=== PATIENT | male | born 1980 | race Two or more races ===

== ENCOUNTER 2021-01-14 20:39 | Emergency (ER) | payer BC ==
[2021-01-14 21:46] VITALS: BP 122/83; PULSE 73; RESP 20; TEMP 97.7
[2021-01-14] MEDS ORDERED: ONDANSETRON 4 MG ODT STARTER PACK 2 TAB BTL PO STA (23:58)
--- NOTE | 2021-01-15 00:01 | ED ---
Nausea/Vomiting/Diarrhea HPI - General Chief complaint: Nausea/Vomiting/Diarrhea Stated complaint: Vomiting Time Seen by Provider: 01/14/21 23:19 Source: patient Mode of arrival: ambulatory Limitations: no limitations - History of Present Illness Initial comments: 40 year-old male patient presents to the emergency department for evaluation after having an episode of vomiting. States he was traveling here from [place], stopped for a fast food lunch in [place] and shortly after eating started to feel nauseated. States he tried to make himself vomit but was unable. States he did have a bowel movement at that time which seemed more loose than usual. [place], this time he did have an episode of vomiting. States he was breathing heavily and started to having numbness and cramping in his hands and feet. They called EMS, he was given zofran. He came in to be seen. States since waiting he has started to feel much better. Denies ever having abdominal pain with this. Denies fever or chills. States nausea is resolved. He states he is otherwise healthy. No chronic medical conditions. - Related Data Previous Rx's Medication Instructions Recorded Ondansetron [Zofran ODT] 4 mg PO Q8HR PRN #10 tab 01/15/21 Allergies Allergy/AdvReac Type Severity Reaction Status Date / Time No Known Allergies Allergy Verified 01/14/21 21:46 Review of Systems ROS Statement: Those systems with pertinent positive or pertinent negative responses have been documented in the HPI. ROS Other: All systems not noted in ROS Statement are negative. Past Medical History Past Medical History: No Reported History History of Any Multi-Drug Resistant Organisms: None Reported Past Surgical History: No Surgical Hx Reported Past Psychological History: No Psychological Hx Reported Smoking Status: Never smoker Past Alcohol Use History: Occasional Past Drug Use History: None Reported General Exam Limitations: no limitations General appearance: alert, in no apparent distress, other (This is a well- developed, well-nourished adult male in no acute distress.) Eye exam: Present: normal appearance, PERRL, EOMI. Absent: scleral icterus, conjunctival injection, periorbital swelling ENT exam: Present: normal exam, normal oropharynx, mucous membranes moist Respiratory exam: Present: normal lung sounds bilaterally. Absent: respiratory distress, wheezes, rales, rhonchi, stridor Cardiovascular Exam: Present: regular rate, normal rhythm, normal heart sounds. Absent: systolic murmur, diastolic murmur, rubs, gallop, clicks GI/Abdominal exam: Present: soft, normal bowel sounds. Absent: distended, tenderness, guarding, rebound, rigid Neurological exam: Present: alert, oriented X3, CN II-XII intact Psychiatric exam: Present: normal affect, normal mood Skin exam: Present: warm, dry, intact, normal color. Absent: rash Course Vital Signs 01/14/21 21:43 Temperature 97.7 F Pulse Rate 73 Respiratory 20 Rate Blood Pressure 122/83 O2 Sat by Pulse 100 Oximetry Medical Decision Making - Medical Decision Making 40 year-old male patient presents for evaluation after having an episode of vomiting, numbness and tingling to the hands and feet. Physical examination unremarkable. States he is feeling better and also does have resolved. Tolerate oral intake while here. We discussed possibility of food poisoning as a cause for his symptoms also discussed that hyperventilation with a cause for his and foot symptoms. I did offer to perform labs, administer IV fluids. He declined. Stated he felt comfortable being discharged since all symptoms resolved. Given a starter pack for Zofran, sent a prescription to his pharmacy. Instructed to follow-up the primary care physician for recheck in 1-2 days. Return parameters were discussed in detail. He verbalizes understanding and agrees with this plan. Case with attending Dr. Ramirez. Disposition Clinical Impression: Vomiting Disposition: HOME SELF-CARE Condition: Good Instructions (If sedation given, give patient instructions): Acute Nausea and Vomiting (ED) Additional Instructions: Take medication every 6 hours as needed. Start with clear liquids and advance as tolerated. Return for any new, worsening, or concerning symptoms. Prescriptions: Ondansetron [Zofran ODT] 4 mg PO Q8HR PRN #10 tab PRN Reason: Nausea Is patient prescribed a controlled substance at d/c from ED?: No Referrals: Nonstaff,Physician [Primary Care Provider] - 1-2 days Time of Disposition: 00:01
== END 2021-01-15 00:08 | disposition home or self-care (01) ==
LOC: EC 20:39 → SUPCPDRO 20:39 → EC 01-15 00:08
DX: R11.2 Nausea with vomiting, unspecified (principal)
CPT/HCPCS: 99284; S0119